=== PATIENT | female | born 1970 | race Asian ===

== ENCOUNTER 2023-03-26 07:11 | Emergency (ER) | payer MEDICAID ==
[~2023-03-26] VITALS: Ht 154.9 cm; Wt 72.6 kg
[2023-03-26 07:55] VITALS: BP_SYST 148; PULSE 78; RESP 22; TEMP 98.8; O2SAT 95
[2023-03-26 08:58] LABS: COVID19 ANTIGEN SOFIA FIA NEGATIVE (NEGATIVE)
[2023-03-26 08:59] LABS: INFLUENZA TYPE B NEGATIVE (NEGATIVE)
[2023-03-26 09:03] LABS: INFLUENZA TYPE A Positive (NEGATIVE)
[2023-03-26] MEDS ORDERED: OSEL75CA PO (09:18)
[2023-03-26 09:28] VITALS: BP_SYST 145; PULSE 81; RESP 19; TEMP 98; O2SAT 97
== END 2023-03-26 09:24 | disposition home or self-care (01) ==
LOC: SED 07:11
DX: J10.1 Influenza due to other identified influenza virus with other respiratory manifestations (principal); R05.9 Cough, unspecified; R06.02 Shortness of breath; E11.9 Type 2 diabetes mellitus without complications; Z79.899 Other long term (current) drug therapy; Z20.822 Contact with and (suspected) exposure to COVID-19
CPT/HCPCS: 36415; 99283